=== PATIENT | male | born 1985 | race Caucasian/White ===

== ENCOUNTER 2019-06-18 07:36 | Emergency (ER) | payer OTHER ==
[~2019-06-18] VITALS: Ht 180.3 cm; Wt 66.7 kg
[2019-06-18 07:43] VITALS: Ht 180.3 cm; Wt 66.7 kg
[2019-06-18 08:36] LABS: CALCIUM 8.5 mg/dL (8.5-10.1); CARBON DIOXIDE 25.3 mmol/L (21-32); CHLORIDE SERUM 109 mmol/L (98-107); CREATININE SERUM 0.9 mg/dL (0.7-1.3); GFR1 > 60 mL/min; GLUCOSE SERUM 99 mg/dL (74-106); POTASSIUM SERUM 3.5 mmol/L (3.5-5.1); SODIUM SERUM 143 mmol/L (136-145)
[2019-06-18 08:40] LABS: ALKALINE PHOSPHATASE 32 U/L (46-116); ALT/SGPT 25 U/L (16-63); AST/SGOT 14 U/L (15-37); BILIRUBIN TOTAL 0.9 mg/dL (0.20-1.00); TOTAL PROTEIN, SERUM 6.2 g/dL (6.4-8.2)
[2019-06-18 08:42] LABS: BASOPHIL % 0.4 % (0-2); PLATELET COUNT 192 x10^3mcL (130-400); RED CELL DISTRIBUTION WIDTH 12.9 % (11.5-14.5)
[2019-06-18 09:32] LABS: microscopic required? NO
[2019-06-18 09:46] LABS: UA SPECIFIC GRAVITY 1.015 (1.005-1.035); urine erythrocyte NEGATIVE (NEGATIVE)
[2019-06-18 09:56] LABS: AMPHETAMINE QUAL UR NONE DETECTED (See below)
[2019-06-18 13:10] VITALS: BP 121/75
== END 2019-06-18 13:10 | disposition home or self-care (01) ==
LOC: ED 07:36
PROVIDERS: Emergency Medicine
DX: F39 Unspecified mood [affective] disorder (principal); F12.20 Cannabis dependence, uncomplicated
CPT/HCPCS: 36415; G0480

== ENCOUNTER 2019-06-22 00:44 | Emergency (ER) | payer OTHER ==
[~2019-06-22] VITALS: Ht 180.3 cm; Wt 68.9 kg
[2019-06-22 00:53] VITALS: Ht 180.3 cm; Wt 68.9 kg
[2019-06-22 04:00] VITALS: BP 117/79
== END 2019-06-22 04:00 | disposition home or self-care (01) ==
LOC: ED 00:44
DX: F41.9 Anxiety disorder, unspecified (principal); R32 Unspecified urinary incontinence; R10.30 Lower abdominal pain, unspecified